=== PATIENT | male | born 1960 | race African-American/Black ===

== ENCOUNTER 2016-09-26 17:51 | Emergency (ER) | payer OTHER ==
[2016-09-26 18:22] VITALS: BP 116/86
--- NOTE | 2016-09-26 19:00 | ED ---
Throat Pain/Nasal Congestion - HPI Summary HPI Summary: 56M presents with right ear for for 2 days. He admits to a decrease in hearing. He states that the area feels swollen. He states it started two days ago after he was in the shower. He denies any drainage from his ears. He thought his ears were plugged with wax so he tried debrox. He states the debrox made it worst. - History of Current Complaint Chief Complaint: EDEarPain Time Seen by Provider: 09/26/16 18:34 - Allergies/Home Medications Allergies/Adverse Reactions: Allergies Allergy/AdvReac Type Severity Reaction Status Date / Time ENVIRONMENTAL Allergy Sneezing, Uncoded 03/04/15 10:40 watery eyes, hives around lips PMH/Surg Hx/FS Hx/Imm Hx Endocrine/Hematology History: Denies: Hx Diabetes, Hx Thyroid Disease Cardiovascular History: Denies: Hx Hypertension, Other Cardiovascular Problems/Disorders Respiratory History: Denies: Hx Asthma, Hx Chronic Obstructive Pulmonary Disease (COPD), Other Respiratory Problems/Disorders GI History: Denies: Hx Ulcer, Other GI Disorders History: Denies: Other Problems/Disorders Musculoskeletal History: Denies: Other Musculoskeletal History Sensory History: Denies: Hx Contacts or Glasses, Hx Hearing Aid Opthamlomology History: Denies: Hx Contacts or Glasses Neurological History: Denies: Other Neuro Impairments/Disorders - Surgical History Surgery Procedure, Year, and Place: 1998 LEFT HAND SURGERY, [place], [place]. 1997 RIGHT HAND SURGERY, [place], [place]. 2006 ANAL SPHINCTEROTOMY, [place], [place]. 08/2011 ANAL SPHINCTEROTOMY, [place] Hx Anesthesia Reactions: No Infectious Disease History: No Infectious Disease History: Denies: Hx Hepatitis, Hx Human Immunodeficiency Virus (HIV), History Other Infectious Disease, Traveled Outside the in Last 30 Days - Family History Known Family History: Positive: None - Social History Alcohol Use: Occasionally Substance Use Type: Reports: None Smoking Status (MU): Current Every Day Smoker Type: Cigarettes Review of Systems Negative: Fever Positive: Ear Ache Negative: Chest Pain Negative: Shortness Of Breath All Other Systems Reviewed And Are Negative: Yes Physical Exam Triage Information Reviewed: Yes Vital Signs On Initial Exam: Initial Vitals Temp Pulse Resp BP Pulse Ox 98.9 F 89 17 116/86 99 09/26/16 18:19 09/26/16 18:19 09/26/16 18:19 09/26/16 18:19 09/26/16 18:19 Vital Signs Reviewed: Yes Appearance: Positive: Well-Appearing Skin: Positive: Warm, Dry Head/Face: Positive: Normal Head/Face Inspection Eyes: Positive: Normal, EOMI, YAO, Conjunctiva Clear ENT: Positive: Pharynx normal, TMs normal, Other - tenderness to tragus, ear canal erythematous and edematous Neck: Positive: Supple, Nontender, No Lymphadenopathy Respiratory/Lung Sounds: Positive: Clear to Auscultation, Breath Sounds Present Cardiovascular: Positive: Normal, RRR Diagnostics - Vital Signs Vital Signs Temp Pulse Resp BP Pulse Ox 09/26/16 18:36 98.9 F 89 17 116/86 99 09/26/16 18:19 98.9 F 89 17 116/86 99 - Laboratory Lab Statement: Any lab studies that have been ordered have been reviewed, and results considered in the medical decision making process. EENT Course/Dx - Course Course Of Treatment: 56M presents with right ear for for 2 days. He admits to a decrease in hearing. He states that the area feels swollen. He states it started two days ago after he was in the shower. He denies any drainage from his ears. He thought his ears were plugged with wax so he tried debrox. He states the debrox made it worst. on exam right ear canal edematous and erythematous. TM normal. will treat with ciprodex. patient understands and agrees with plan. - Differential Diagnoses Differential Diagnoses: Otitis Externa, Otitis Media, Sinusitis - Diagnoses Provider Diagnoses: Right otitis externa Discharge - Discharge Plan Condition: Good Disposition: HOME Patient Education Materials: Otitis Externa (ED) Referrals: Juan Carr MD [Primary Care Provider] - Additional Instructions: Use 4 drops twice a day for 7 days, lay on side for a minute to allow drops to get into ear canal Follow up with primary in a week to make sure resolving Return to ED if develop any new or worsening symptoms
[2016-09-26] MEDS ORDERED: Ciproflox/Dexameth OTIC.SUSP* 7.5 ML BTL RIGHT EAR ONE (19:01)
== END 2016-09-26 19:16 | disposition home or self-care (01) ==
LOC: ED 17:51
DX: H60.91 Unspecified otitis externa, right ear (principal); F17.210 Nicotine dependence, cigarettes, uncomplicated
CPT/HCPCS: 99281; A9270-GY

== ENCOUNTER 2018-02-06 14:30 | Emergency (ER) | payer OTHER ==
[2018-02-06 15:10] VITALS: BP 118/80
--- NOTE | 2018-02-06 15:13 | UC ---
Skin Complaint HPI - HPI Summary HPI Summary: PATIENT COMPLAINS OF BUMPY RASH ON HIS UPPER LIP FOR THE PAST 2-3 MONTHS. NOT ITCHY OR PAINFUL BUT DESCRIBED A BURNING SENSATION. STATES HE STARTED WORKING IN A [employer] ABOUT 2 WEEKS PRIOR TO DEVELOPING THE RASH. HE THINKS IT MAY BE FROM SOME FUMES THAT ARE PRESENT IN HIS WORKPLACE. HE HAS NO SWELLING OF THE TONGUE OR LIPS. NO RESPIRATORY INVOLVEMENT. NO RASH ANYWHERE ELSE. NO FEVER, NAUSEA/VOMITING. IS A SMOKER. DENIES USING SMOKELESS TOBACCO. - History of Current Complaint Chief Complaint: UCSkin Time Seen by Provider: 02/06/18 14:40 Stated Complaint: MOUTH COMPLAINT Hx Obtained From: Patient Onset/Duration: Gradual Onset, Lasting Weeks, Still Present Timing: Constant Onset Severity: Moderate Current Severity: Moderate Pain Intensity: 4 Pain Scale Used: 0-10 Numeric Location: Discrete - UPPER LIP Character: Raised Aggravating Factor(s): Other - FUMES FROM WORK Alleviating Factor(s): Nothing Associated Signs & Symptoms: Positive: Rash. Negative: Nausea, Vomiting, Fever , Cough, Wheezing, Drainage, Tenderness - Allergy/Home Medications Allergies/Adverse Reactions: Allergies Allergy/AdvReac Type Severity Reaction Status Date / Time ENVIRONMENTAL Allergy Sneezing, Uncoded 02/06/18 14:52 watery eyes, hives around lips Home Medications: Home Medications Fexofenadine (NF) [Maggi (NF)] 60 mg PO DAILY 02/06/18 [History Confirmed ] PMH/Surg Hx/FS Hx/Imm Hx Cardiovascular History: Hypertension - Surgical History Surgical History: Yes Surgery Procedure, Year, and Place: 1998 LEFT HAND SURGERY, [place], [place]. 1997 RIGHT HAND SURGERY, [place], [place]. 2006 ANAL SPHINCTEROTOMY, [place], [place]. 08/2011 ANAL SPHINCTEROTOMY, [place] - Family History Known Family History: Positive: None Negative: Hypertension - Social History Alcohol Use: Weekly Substance Use Type: None Smoking Status (MU): Current Every Day Smoker Type: Cigarettes Review of Systems All Other Systems Reviewed And Are Negative: Yes Constitutional: Positive: Negative Skin: Positive: Rash Respiratory: Positive: Negative Cardiovascular: Positive: Negative Gastrointestinal: Positive: Negative Physical Exam Triage Information Reviewed: Yes Appearance: Well-Appearing, No Pain Distress, Well-Nourished Vital Signs: Initial Vital Signs Temp 97.3 F 02/06/18 14:46 Pulse 79 02/06/18 14:46 Resp 16 02/06/18 14:46 BP 171/93 02/06/18 14:46 Pulse Ox 99 02/06/18 14:46 Vital Signs Reviewed: Yes Eyes: Positive: Conjunctiva Clear ENT: Positive: Hearing grossly normal, Pharynx normal, Uvula midline Neck: Positive: Supple, Nontender, No Lymphadenopathy Respiratory: Positive: No respiratory distress, No accessory muscle use Cardiovascular: Positive: Pulses Normal Abdomen Description: Positive: Soft Musculoskeletal: Positive: No Edema Neurological: Positive: Alert Psychological: Negative: Age Appropriate Behavior Skin: Positive: Rashes - FLESH COLORED PAPULES SCATTERED OVER UPPER LIP. NOT TENDER. NO DRAINAGE OR EXCORIATION. Course/Dx - Course Course Of Treatment: UNCLEAR ETIOLOGY OF PATIENT'S RASH. IT CERTAINLY COULD BE DUE TO AN ALLERGIC REACTION FROM SOME EXPOSURE AT WORK. SUCH WE WILL TRY TREATING WITH ORAL STEROIDS AND TOPICAL STEROIDS. PATIENT ADVISED TO BE SPARING WITH HIS USE OF STEROID OINTMENT ON A MUCOUS MEMBRANES AND NOT TO USE FOR MORE THAN 7-10 DAYS. IF THE RASH DOES NOT RESPOND TO STEROID TREATMENT HE MAY BENEFIT FROM A BIOPSY. PATIENT IS TO CALL DERMATOLOGY TOMORROW TO SCHEDULE A FOLLOW-UP APPOINTMENT. RASH NOT CONSISTENT WITH HERPES. - Diagnoses Provider Diagnosis: Dermatitis Discharge - Sign-Out/Discharge Documenting (check all that apply): Patient Departure All imaging exams completed and their final reports reviewed: No Studies - Discharge Plan Condition: Stable Disposition: HOME Prescriptions: Hydrocortisone 1% Oint(NF) [Hydrocortisone 1% Oint (NF)] 1 applic TOPICAL DAILY #1 tube predniSONE TAB* [Deltasone 20 MG TAB*] 40 mg PO DAILY #10 tab Patient Education Materials: Dermatitis (ED) Referrals: Wisam Vaughn DO [Doctor of Osteopathy] - If Needed Juan Carr MD [Primary Care Provider] - Additional Instructions: THE RASH ON YOUR UPPER LIP MAY BE DUE TO AN ALLERGIC REACTION FROM EXPOSURE AT WORK. APPLY TOPICAL HYDROCORTISONE SPARINGLY ONCE DAILY FOR THE NEXT 7-10 DAYS AND TAKE ORAL STEROIDS FOR THE NEXT 5 DAYS. TRY TO AVOID EXPOSURE TO THE OFFENDING FUMES MUCH POSSIBLE. CONTINUE TO TAKE YOUR ANTIHISTAMINE DAILY. CALL DERMATOLOGY TOMORROW TO SCHEDULE AN APPOINTMENT SOON POSSIBLE. GO TO THE ED WITHOUT FAIL IF YOU DEVELOP SWELLING OF THE TONGUE/LIPS , SHORTNESS OF BREATH, FEVER, NAUSEA OR ANY OTHER CONCERNING SYMPTOMS. DERMATOLOGY IN [place] DR. PENNY SMITH [facility], [facility] [address]; [address] [place] [address] Dr. Madelaine Pollard Address: [facility] [place] [address] DR. EDGAR [facility] [address] [place] [address] DER[address] IN [place] Dr. Nikki Lawson DERMATOLOGY IN [place] DR. CHE DE LEON [phone] - Billing Disposition and Condition Condition: STABLE Disposition: Home
== END 2018-02-06 15:27 | disposition home or self-care (01) ==
LOC: UCEAST 14:30
DX: L30.9 Dermatitis, unspecified (principal); F17.210 Nicotine dependence, cigarettes, uncomplicated
CPT/HCPCS: 99212; G0463

== ENCOUNTER 2021-04-30 10:46 | Observation (INO) ==
[2021-04-30 13:42] LABS: ABS Lymphocytes 1.2 10^3/ul (1.0-4.8); ABS Monocytes 0.9 10^3/ul (0-0.8); ABS Neutrophils 6.7 10^3/ul (1.5-7.7); Eosinophil % 0.4 %; Hematocrit 41 % (42-52); Hemoglobin 13.6 g/dL (14.0-18.0); Lymphocyte % 13.3 %; Mean Corpuscular HGB Conc 33 g/dL (31-36); Mean Corpuscular Hemoglobin 28 pg (27-31); Mean Corpuscular Volume 84 fL (80-94); Mean Platelet Volume 7.4 fL (7.4-10.4); Platelet Count 230 10^3/uL (150-450); Red Cell Distribution Width 14 % (10-15); White Blood Count 8.9 10^3/uL (3.5-10.8)
[2021-04-30 14:30] LABS: Albumin 3.8 g/dL (3.2-5.2); Calcium 9.4 mg/dL (8.6-10.3); Potassium 4.1 mmol/L (3.5-5.0); Total Bilirubin 0.7 mg/dL (0.2-1.0)
[2021-04-30 14:36] LABS: Albumin/Globulin Ratio 1.3 (1-3); Total Protein 6.8 g/dL (6.4-8.9); eGFR CKD-EPI 98.7 (>60)
[2021-04-30 15:06] LABS: Urine Appearance Clear; Urine Bilirubin Negative (Negative); Urine Blood 2+ (Negative); Urine Color Yellow; Urine Glucose Negative (Negative); Urine Ketones 1+ (Negative); Urine Nitrite Negative (Negative); Urine Protein Negative (Negative); Urine Specific Gravity 1.012 (1.002-1.030); Urine Urobilinogen Negative (Negative)
[2021-04-30 15:18] LABS: Urine Amorphous Crystals Present (Absent); Urine Bacteria Absent (Absent); Urine Red Blood Cell 1+(3-5/hpf) (Absent); Urine Squamous Epithelial Cell Present (Absent); Urine White Blood Cell Trace(0-5/hpf) (Absent)
[2021-04-30] MEDS ORDERED: Iodixanol (CONTRAST) 320 MG/ML 100 ML SDV IV ONE (15:37)
[2021-04-30 16:32] LABS: High Sensitivity Troponin 1 Hr 4 pg/mL (<20)
[2021-04-30] MEDS ORDERED: Enoxaparin 80 MG/0.8 ML SYR SUBCUT ONE (16:32)
[2021-04-30] MEDS ORDERED: Morphine 4 MG/ML VIAL (1 ml) IV ONE (16:32)
[2021-04-30 17:57] LABS: PSA Screening Total 7.147 ng/mL (0-4.000)
[2021-05-01 06:05] LABS: ABS Basophils 0.1 10^3/ul (0-0.2); ABS Eosinophils 0.1 10^3/ul (0-0.6); ABS Lymphocytes 1.5 10^3/ul (1.0-4.8); ABS Monocytes 0.9 10^3/ul (0-0.8); ABS Neutrophils 5.1 10^3/ul (1.5-7.7); Eosinophil % 0.8 %; Hematocrit 38 % (42-52); Hemoglobin 12.7 g/dL (14.0-18.0); Lymphocyte % 20.1 %; Mean Corpuscular HGB Conc 33 g/dL (31-36); Mean Corpuscular Hemoglobin 28 pg (27-31); Mean Corpuscular Volume 85 fL (80-94); Mean Platelet Volume 7.6 fL (7.4-10.4); Platelet Count 209 10^3/uL (150-450); Red Blood Count 4.47 10^6 /uL (4.18-5.48); Red Cell Distribution Width 14 % (10-15); White Blood Count 7.7 10^3/uL (3.5-10.8)
[2021-05-01 06:28] LABS: Potassium 3.7 mmol/L (3.5-5.0)
[2021-05-01 06:29] LABS: Calcium 8.7 mg/dL (8.6-10.3); eGFR CKD-EPI 83.7 (>60)
[2021-05-01 08:06] VITALS: BP 134/68
== END 2021-05-01 15:37 | disposition home or self-care (01) ==
LOC: MEDTELE 10:46 → ED 10:46
PROVIDERS: ADMIT Internal Medicine; ATTEND Internal Medicine